=== PATIENT | male | born 1975 | race American Indian/Alaskan Native ===

== ENCOUNTER 2018-01-27 21:37 | Emergency (ER) | payer MEDICARE, MEDICAID ==
[2018-01-27] MEDS ORDERED: NACL 0.9% 1000 ML 1,000 ML IV ONE (22:23)
[2018-01-27 22:46] LABS: Basophils # (Auto) 0.1 K/mm3 (0.0-0.1); Basophils % (Auto) 0.7 % (0.0-1.8); Eosinophils # (Auto) 0.1 K/mm3 (0.0-0.4); Eosinophils % (Auto) 0.7 % (0.0-4.3); Hematocrit 39.1 % (35.5-45.6); Lymphocytes % (Auto) 19.1 % (13.4-35.0); Mean Corpuscular HGB Conc 33 % (32-34); Mean Corpuscular Volume 75 fl (84-94); Monocytes # (Auto) 1.4 K/mm3 (0.0-0.8); Monocytes % (Auto) 12.7 % (0.0-7.3); Platelet Count 252 K/mm3 (140-440); Red Blood Count 5.22 M/mm3 (3.65-5.03); Red Cell Distribution Width 14.3 % (13.2-15.2)
[2018-01-27 22:48] LABS: Mean Corpuscular Hemoglobin 25 pg (28-32)
[2018-01-27 23:02] LABS: Albumin 3.3 g/dL (3.9-5); Calcium 9.1 mg/dL (8.4-10.2)
[2018-01-27 23:08] LABS: Bacteria,Urine 1+ /HPF (Negative); Bilirubin,Urine NEG (Negative); Blood,Urine MOD (Negative); Color,Urine Yellow (Yellow); Mucus,Urine FEW /HPF; Urobilinogen,Urine < 2.0 mg/dL (<2.0)
[2018-01-27 23:09] LABS: Protein,Urine >500 mg/dL (Negative)
[2018-01-28] MEDS ORDERED: K-DUR PO ONE (00:18)
[2018-01-28] MEDS ORDERED: NACL 0.9% 1000 ML 1,000 ML IV ONE (00:37)
[2018-01-28] MEDS ORDERED: TORADOL IV ONE (00:37)
[2018-01-28] MEDS ORDERED: TYLENOL PO ONE (00:37)
[2018-01-28] MEDS ORDERED: COMPAZINE IV ONE (00:38)
[2018-01-28] MEDS ORDERED: APRESOLINE IV ONE ×2 (00:38→01:49)
--- NOTE | 2018-01-28 00:40 | Cat Scan Report ---
FINAL REPORT EXAM: CT HEAD/BRAIN WO CON HISTORY: h/a elev bp hx stroke COMPARISON: None available. TECHNIQUE: Contiguous axial images were obtained. FINDINGS: Large area of encephalomalacia involving the lateral margins of the left frontal, parietal superior margin of the left temporal lobe. This may relate to sequelae of prior ischemia or trauma. Mild ex vacuo dilatation left lateral ventricle. Remainder of marshall-white differentiation maintained. No acute intracranial hemorrhage or midline shift. Basal cisterns are patent. Mild dolichoectasia of the vertebral basilar system. Mild calcified plaque along the intracranial carotid and vertebral arteries. Tortuous course of the intracranial carotid arteries. Calvarium is grossly intact. Mild mucosal thickening the paranasal sinuses. Mastoid air cells are clear. Ocular globes are unremarkable. IMPRESSION: Large area of encephalomalacia involving the left cerebral hemisphere which may relate to sequelae of prior trauma or infarct. Prior infarct is favored. No evidence of acute transcortical infarct or intracranial hemorrhage by CT on today's exam. Mild atherosclerosis of dolichoectasia of the intracranial arteries.
[2018-01-28 00:41] LABS: INR 1.45 (0.87-1.13)
[2018-01-28 00:42] LABS: Partial Thromboplastin Time 35.9 Sec. (24.2-36.6)
[2018-01-28] MEDS ORDERED: BABY ASPIRIN PO ONE (00:53)
[2018-01-28] MEDS ORDERED: NACL 0.9% 1000 ML 1,000 ML IV SCH (01:00)
--- NOTE | 2018-01-28 01:54 | Emergency Department Report ---
ED General Adult HPI - General Chief complaint: Abdominal Pain Stated complaint: headache Time Seen by Provider: 01/27/18 23:41 Source: patient Mode of arrival: Ambulatory Limitations: No Limitations - History of Present Illness Initial comments: Patient states that he has not had his medications in the past month. He has been having intermittent left-sided headaches without photophobia or phonophobia. He says this happens whenever his blood pressure is high. He has residual right arm/leg weakness from an old stroke. Has new exertional shortness of breath. History of DVT and is supposed be taking Coumadin. Triage note says that he is having abdominal pain with nausea and vomiting. Patient denies any GI complaints and says that he is here for his headache. Severity scale (0 -10): 7 - Related Data Home Medications Medication Instructions Recorded Confirmed Last Taken Citalopram HBr 20 mg PO DAILY 01/28/18 01/28/18 Unknown Losartan Potassium 50 mg PO DAILY 01/28/18 01/28/18 Unknown Metoprolol Tartrate 100 mg PO BID 01/28/18 01/28/18 Unknown Nifedipine ER 90 mg PO DAILY 01/28/18 01/28/18 Unknown OLANZapine 5 mg PO DAILY 01/28/18 01/28/18 Unknown Warfarin 7.5 mg PO DAILY 01/28/18 01/28/18 Unknown lamoTRIgine 25 mg PO DAILY 01/28/18 01/28/18 Unknown traZODone 100 mg PO HS 01/28/18 01/28/18 Unknown Allergies Allergy/AdvReac Type Severity Reaction Status Date / Time No Known Allergies Allergy Verified 01/27/18 23:41 ED Review of Systems ROS: Stated complaint: ABD PAIN Other details as noted in HPI Comment: All other systems reviewed and negative Cardiovascular: dyspnea on exertion Neurological: headache ED Past Medical Hx - Past Medical History Hx Hypertension: Yes Hx CVA: Yes Hx Headaches / Migraines: Yes - Surgical History Past Surgical History?: No - Social History Smoking Status: Never Smoker Substance Use Type: None - Medications Home Medications: Home Medications Medication Instructions Recorded Confirmed Last Taken Type Citalopram HBr 20 mg PO DAILY 01/28/18 01/28/18 Unknown History Losartan Potassium 50 mg PO DAILY 01/28/18 01/28/18 Unknown History Metoprolol Tartrate 100 mg PO BID 01/28/18 01/28/18 Unknown History Nifedipine ER 90 mg PO DAILY 01/28/18 01/28/18 Unknown History OLANZapine 5 mg PO DAILY 01/28/18 01/28/18 Unknown History Warfarin 7.5 mg PO DAILY 01/28/18 01/28/18 Unknown History lamoTRIgine 25 mg PO DAILY 01/28/18 01/28/18 Unknown History traZODone 100 mg PO HS 01/28/18 01/28/18 Unknown History ED Physical Exam - General Limitations: No Limitations General appearance: alert, in no apparent distress - Head Head exam: Present: atraumatic, normocephalic - Eye Eye exam: Present: normal appearance - ENT ENT exam: Present: mucous membranes moist - Neck Neck exam: Present: normal inspection - Respiratory Respiratory exam: Present: normal lung sounds bilaterally. Absent: respiratory distress - Cardiovascular Cardiovascular Exam: Present: regular rate, normal rhythm, tachycardia. Absent : systolic murmur, diastolic murmur, rubs, gallop, JVD - GI/Abdominal GI/Abdominal exam: Present: soft, normal bowel sounds. Absent: tenderness - Rectal Rectal exam: Present: deferred - Extremities Exam Extremities exam: Present: normal inspection - Back Exam Back exam: Present: normal inspection - Neurological Exam Neurological exam: Present: alert, oriented X3, CN II-XII intact, other ( bilateral sensation intact. Right arm and leg with 4 out of 5 strength. This is chronic. Left arm and leg with 5 out of 5 strength.) - Psychiatric Psychiatric exam: Present: normal affect, normal mood - Skin Skin exam: Present: warm, dry, intact, normal color. Absent: rash ED Course Vital Signs 01/27/18 01/28/18 01/28/18 22:19 01:09 02:09 Temperature 99.6 F Pulse Rate 125 H 120 H 107 H Respiratory 22 Rate Blood Pressure 206/127 198/125 176/102 O2 Sat by Pulse 97 Oximetry ED Medical Decision Making - Lab Data Result diagrams: 01/27/18 22:25 01/27/18 23:42 - EKG Data -: EKG Interpreted by Ma EKG shows normal: sinus rhythm, axis, intervals, QRS complexes, ST-T waves Rate: normal, tachycardia - EKG Data Interpretation: other (sinus tach) - Radiology Data Radiology results: image reviewed - Medical Decision Making 42-year-old male with past medical history of hypertension, CVA, seizures, DVT on Coumadin presents to the ER with headache and exertional shortness of breath. Vital signs significant for hypertension, with a systolic blood pressure in the low 200s, and tachycardia with a heart rate of 120. He appears clinically not to be in distress. He is endorsing a headache. No new focal deficit on exam. Already has a residual right arm and leg deficit from an old stroke. He was given hydralazine to bring his blood pressure down and a headache cocktail. On reevaluation, patient's head feels much better. Lab work shows a creatinine of 3 with no prior for comparison. His potassium is 2.9. INR is 1.4. Unclear exact etiology of patient's electrolyte abnormalities. Normal INR is likely due to patient not taking his Coumadin. He has not taking any of his home medications in the past month. He is having exertional shortness of breath with history of DVT. Given that he has been noncompliant with his Coumadin, I have ordered a CT chest to exclude PE. Patient has a small troponin elevation of 0.11. EKG is nonischemic. Likely this is due to demand from his hypertension and possible PE. CT chest is pending. If it is negative, patient will still require admission for his hypertension, troponin elevation, DAVON, and hypokalemia. Pt has been signed out to Dr. Rg - Differential Diagnosis ACS, ICH, PE, dehydration, PTX, pneumonia, CVA Critical care attestation.: If time is entered above; I have spent that time in minutes in the direct care of this critically ill patient, excluding procedure time. ED Disposition Clinical Impression: Hypokalemia, Hypertension, DAVON (acute kidney injury), Troponin level elevated Disposition: Z-01 MED SCREENING EXAM-CONT Is pt being admited?: No Does the pt Need Aspirin: No Condition: Stable Instructions: Hypertension (ED) Referrals: PRIMARY CARE, [Primary Care Provider] - 3-5 Days
[2018-01-28 02:20] LABS: Chol/HDL Ratio 2.66 %
--- NOTE | 2018-01-28 03:26 | Cat Scan Report ---
FINAL REPORT EXAM: CT ANGIO CHEST HISTORY: SOB, c/f PE COMPARISON: None available. TECHNIQUE: Contiguous axial images were obtained. Additional sagittal and coronal reformatted images were obtained. Administration of IV contrast given per institution protocol. Images submitted for interpretation. FINDINGS: There pulmonary emboli involving the segmental branches of the lower lobes bilaterally greater on the right. No involvement of the main pulmonary arteries or proximal lobar arteries. Right middle lobe and bilateral upper lobes appear to be spared. Heart is normal in size. Right ventricle measures 4.6 centimeters in diameter in the left ventricle 7.7 centimeters. No evidence of right ventricular strain. There is aneurysmal dilatation of the ascending thoracic aorta measuring up to 5.0 centimeters in diameter. There is intimal flap rising from the proximal ascending thoracic aorta extending superiorly to the aortic arch. No involvement of the descending thoracic aorta. No involvement of the origins of the innominate, left common carotid and left subclavian arteries. Airspace consolidations septal thickening lower lobes concerning for combination of possible edema and pulmonary infarct. Pulmonary hemorrhage is not excluded. Smaller consolidation the posterior margin right upper lobe. No obstructive lesion centrally within the tracheobronchial tree. Subcentimeter low-attenuation lesion at the posterior margin right hepatic lobe which could reflect a small cyst. Partial visualization of left renal cyst. Mild degenerative changes of the thoracic spine. 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 Intimal flap extends the level of the aortic arch without extension into the origins of the great arterial vessels of the neck. Both the true and false lumens remain widely patent. Descending thoracic aorta is normal in caliber. There is aneurysmal dilatation of the ascending thoracic aorta measuring up to 5 centimeters in diameter. Bilateral pulmonary emboli involving the segmental branches of the lower lobes more extensive on the right. No evidence of right ventricular strain. Patchy airspace opacities bilateral lower lobes and septal thickening and smaller airspace consolidation right upper lobe which may reflect areas of infarct. There may be mild superimposed edema or pulmonary hemorrhage. Findings discussed with Dr. Rg. January 28, 2018 at 0317 hours EST.
[2018-01-28 03:36] VITALS: BP 165/107
--- NOTE | 2018-01-28 04:08 | Emergency Department Report ---
Blank Doc - Documentation Documentation: I assumed care of Mr. Bolton. Awaiting CTA to rule out PE with hx of DVT, tachycardia and shortness of breath. Also presented with abdominal pain and headache. He has not taken warfarin therapy in over a year. Incidental finding of aortic 5 cm ascending dissection from aortic root to the aortic arch. I discussed this case with the radiologist. I discussed this case with Dr. Mcdonald cardiothoracic surgery at [facility]. Patient denied having any chest pain at this time. His headache feels better. Denies abdominal pain. He understands that he will be transferred to a larger hospital for definitive care. He is able to give consent for transfer. He will be transferred to the ICU accepted by CT surgeon Dr. Mcdonald. Patient did have persistent elevated blood pressure. I have ordered nicardipine driprip for goal systolic 120 mmHg 35 minutes of critical care time were used in the care of the patient. Patient required multiple reassessments and interventions. Spoke with our hospitalist. I spoke with transfer since her nurse. I also spoke with cardiothoracic surgeon. I reviewed labs and CT results.
[2018-01-28] MEDS ORDERED: CARDENE 50 MG in NACL 0.9% 250ML 230 ML IV SCH (05:00)
== END 2018-01-28 05:45 | disposition home or self-care (01) ==
LOC: ED 21:37
DX: N17.9 Acute kidney failure, unspecified (principal); E87.6 Hypokalemia; I10 Essential (primary) hypertension; R79.89 Other specified abnormal findings of blood chemistry; G43.909 Migraine, unspecified, not intractable, without status migrainosus; Z86.73 Personal history of transient ischemic attack (TIA), and cerebral infarction without residual deficits
CPT/HCPCS: 36415; 70450; 71275; 80048; 80053; 80061; 81001; 82962; 84484; 85025; 85610; 85670; 85730; 93005; 93010; 96361; 96365; 96375; 96376; 99291; J0360; J0780; J1885; J7030; J7050; Q9967; 99285